=== PATIENT | male | born 1955 | race American Indian/Alaskan Native ===

== ENCOUNTER 2019-04-28 18:53 | Emergency (ER) | payer MEDICARE ==
--- NOTE | 2019-04-28 18:55 | Emergency Department Report ---
ED Neuro Deficit HPI - General Chief Complaint: Neuro Symptoms/Deficit Stated Complaint: STROKE Time Seen by Provider: 04/28/19 18:53 Source: patient, EMS Mode of arrival: Stretcher Limitations: No Limitations - History of Present Illness Initial Comments: Patient is a 63-year-old male who presents emergency with complaints of weakness, difficulty speaking and facial droop. Patient states his symptoms started at 6 PM and resolved just prior to coming to the hospital. Patient brought in by EMS. Patient denies chest pain shortness of breath. Patient denies fever chills. Patient denies headache. Patient denies blurry vision. -: Sudden Location: speech Presenting Symptoms: Present: Facial Droop/Numbness, Unable to Speak Clearly History of same: No Place: home Severity: severe Quality: weak, numb Improves With: time, rest Worsens With: none On Anticoagulants: No Context: sudden onset Associated Symptoms: weakness - Related Data Allergies/Adverse Reactions: Allergies Allergy/AdvReac Type Severity Reaction Status Date / Time No Known Allergies Allergy Unverified 04/28/19 18:55 ED Review of Systems ROS: Stated complaint: STROKE Other details as noted in HPI Constitutional: weakness. denies: chills, fever Eyes: denies: eye pain, eye discharge, vision change ENT: denies: ear pain, throat pain Respiratory: denies: cough, shortness of breath, wheezing Cardiovascular: denies: chest pain, palpitations Endocrine: no symptoms reported Gastrointestinal: denies: abdominal pain, nausea, diarrhea Genitourinary: denies: urgency, dysuria Musculoskeletal: denies: back pain, joint swelling, arthralgia Skin: denies: rash, lesions Neurological: weakness. denies: headache, paresthesias Psychiatric: denies: anxiety, depression Hematological/Lymphatic: denies: easy bleeding, easy bruising ED Past Medical Hx - Past Medical History Previous Medical History?: Yes Hx Hypertension: No Hx HIV: Yes - Surgical History Past Surgical History?: No - Family History Family history: no significant - Social History Smoking Status: Former Smoker Substance Use Type: None ED Neuro Physical Exam - General Limitations: No Limitations General appearance: alert, in no apparent distress Suspected Stroke: Yes - Head Head exam: Present: atraumatic, normocephalic - Eye Eye exam: Present: normal appearance - ENT ENT exam: Present: mucous membranes moist - Neck Neck exam: Present: normal inspection - Respiratory Respiratory exam: Present: normal lung sounds bilaterally. Absent: respiratory distress - Cardiovascular Cardiovascular Exam: Present: regular rate, normal rhythm. Absent: systolic murmur, diastolic murmur, rubs, gallop - GI/Abdominal GI/Abdominal exam: Present: soft, normal bowel sounds - Rectal Rectal exam: Present: deferred - Extremities Exam Extremities exam: Present: normal inspection - Back Exam Back exam: Present: normal inspection - Neurological Exam Neurological exam: Present: alert, oriented X3 - NIHSS Assessment Interval: Baseline 1a. Level of Consciousness: alert/keenly responsive 1b. LOC Questions: answers both correctly 1c. LOC Commands: performs tasks correctly 2. Best Gaze: normal 3. Visual: no visual loss 4. Facial Palsy: minor paralysis 5b. Motor Arm Right: no drift 5a. Motor Arm Left: no drift 6a. Motor Leg Left: no drift 6b. Motor Leg Right: no drift 7. Limb Ataxia: absent 8. Sensory: normal 9. Best Language: no aphasia 10. Dysarthria: normal 11. Extinction/Inattention: no abnormality Total Score: 1 Stroke Severity: Minor Stroke - Psychiatric Psychiatric exam: Present: normal affect, normal mood - Skin Skin exam: Present: warm, dry, intact, normal color. Absent: rash ED Course Vital Signs 04/28/19 04/28/19 04/28/19 19:13 19:15 19:31 Pulse Rate 77 78 85 Respiratory 16 20 13 Rate Blood Pressure 183/99 195/120 O2 Sat by Pulse 99 98 98 Oximetry 04/28/19 04/28/19 04/28/19 19:45 20:00 20:15 Pulse Rate 80 81 94 H Respiratory 11 L 21 14 Rate Blood Pressure 190/113 179/95 179/95 O2 Sat by Pulse 98 99 99 Oximetry 04/28/19 04/28/19 04/28/19 20:30 20:45 21:00 Pulse Rate 93 H 92 H 91 H Respiratory 15 19 21 Rate Blood Pressure 174/96 174/96 151/88 O2 Sat by Pulse 98 98 99 Oximetry 04/28/19 04/28/19 21:15 21:30 Pulse Rate 93 H 90 Respiratory 13 19 Rate Blood Pressure 174/96 170/105 O2 Sat by Pulse 99 99 Oximetry - Reevaluation(s) Reevaluation #1: Radiologist called with report and patient has had basal ganglia bleed 04/28/19 19:05 Reevaluation #2: Patient's blood pressure initially elevated. Patient was given hydralazine 20 mg and Keppra. 04/28/19 19:44 Reevaluation #3: Blood pressure still elevated and patient will be given Lopressor 5 mg IV. 04/28/19 20:44 - Consultations Consultation #1: I discussed the case with neurologist. Neurology wants the patient admitted for stroke workup if CT head negative. 04/28/19 19:[address] findings with neurologist and neurologist recommends keeping the blood pressure below 140/90. 04/28/19 19:50 Consultation #2: [facility] paged 04/28/19 20:07 Discussed case with neurosurgery and the neuro casting machine operator automatic. Dr. Jimenez has accepted the patient be [facility] to [facility]. 04/28/19 20:25 - Lab Data Result diagrams: 04/28/19 19:23 04/28/19 19:23 Lab Results 04/28/19 04/28/19 04/28/19 Range/Units 19:23 19:23 19:23 WBC 3.0 L (4.5-11.0) K/mm3 RBC 3.59 L (3.65-5.03) M/mm3 Hgb 10.8 L (11.8-15.2) gm/dl Hct 32.5 L (35.5-45.6) % MCV 90 (84-94) fl MCH 30 (28-32) pg MCHC 33 (32-34) % RDW 13.9 (13.2-15.2) % Plt Count 109 L (140-440) K/mm3 Lymph % (Auto) 47.2 H (13.4-35.0) % [place] % (Auto) 13.5 H (0.0-7.3) % Eos % (Auto) 2.2 (0.0-4.3) % Baso % (Auto) 0.4 (0.0-1.8) % Lymph # 1.4 (1.2-5.4) K/mm3 [place] # 0.4 (0.0-0.8) K/mm3 Eos # 0.1 (0.0-0.4) K/mm3 Baso # 0.0 (0.0-0.1) K/mm3 Seg Neutrophils % 36.7 L (40.0-70.0) % Seg Neutrophils # 1.1 L (1.8-7.7) K/mm3 PT 14.2 (12.2-14.9) Sec. INR 1.13 (0.87-1.13) APTT 30.0 (24.2-36.6) Sec. Thrombin Time (15.1-19.6) Sec. Sodium 135 L (137-145) mmol/L Potassium 3.9 (3.6-5.0) mmol/L Chloride 101.7 (98-107) mmol/L Carbon Dioxide 27 (22-30) mmol/L Anion Gap 10 mmol/L BUN 22 H (9-20) mg/dL Creatinine 1.7 H (0.8-1.5) mg/dL Estimated GFR 50 ml/min BUN/Creatinine Ratio 13 % Glucose 97 (75-100) mg/dL POC Glucose (70-105) Calcium 8.4 (8.4-10.2) mg/dL Troponin T < 0.010 (0.00-0.029) ng/mL 04/28/19 04/28/19 Range/Units 19:23 19:25 WBC (4.5-11.0) K/mm3 RBC (3.65-5.03) M/mm3 Hgb (11.8-15.2) gm/dl Hct (35.5-45.6) % MCV (84-94) fl MCH (28-32) pg MCHC (32-34) % RDW (13.2-15.2) % Plt Count (140-440) K/mm3 Lymph % (Auto) (13.4-35.0) % [place] % (Auto) (0.0-7.3) % Eos % (Auto) (0.0-4.3) % Baso % (Auto) (0.0-1.8) % Lymph # (1.2-5.4) K/mm3 [place] # (0.0-0.8) K/mm3 Eos # (0.0-0.4) K/mm3 Baso # (0.0-0.1) K/mm3 Seg Neutrophils % (40.0-70.0) % Seg Neutrophils # (1.8-7.7) K/mm3 PT (12.2-14.9) Sec. INR (0.87-1.13) APTT (24.2-36.6) Sec. Thrombin Time 18.0 (15.1-19.6) Sec. Sodium (137-145) mmol/L Potassium (3.6-5.0) mmol/L Chloride (98-107) mmol/L Carbon Dioxide (22-30) mmol/L Anion Gap mmol/L BUN (9-20) mg/dL Creatinine (0.8-1.5) mg/dL Estimated GFR ml/min BUN/Creatinine Ratio % Glucose (75-100) mg/dL POC Glucose 90 (70-105) Calcium (8.4-10.2) mg/dL Troponin T (0.00-0.029) ng/mL - EKG Data -: EKG Interpreted by [place] EKG shows normal: sinus rhythm, intervals, QRS complexes, ST-T waves Rate: normal Interpretation: LVH, other (axis deviation.) - Radiology Data Radiology results: report reviewed CT head/brain wo con INDICATION / CLINICAL INFORMATION: 63 years Male; poss stroke. TECHNIQUE: Routine CT head without contrast. All CT scans at this location are performed using CT dose reduction for ALARA by means of automated exposure control. COMPARISON: None. FINDINGS: BRAIN / INTRACRANIAL CONTENTS: There is a small focus of hemorrhage in the left lentiform nucleus, most likely related to a small lacunar infarct. This area measures 12 mm in maximum dimension. 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 No acute hemorrhage, mass effect, midline shift, hydrocephalus, or acute, large territorial infarct. There are mild to moderate areas of decreased attenuation in the white matter of the cerebral hemispheres. These are nonspecific findings and may be related to microangiopathy (hypertension, diabetes, atherosclerosis), given the patient's age. It might be difficult to evaluate for small areas of ischemia without diffusion imaging by MRI. CRANIOCERVICAL JUNCTION: No significant abnormality. ORBITS: No significant abnormality of visualized orbits. SINUSES / MASTOIDS: Mild mucosal thickening seen in the mastoids. ADDITIONAL FINDINGS: Atherosclerotic disease is seen in the anterior circulation. Chronic sialadenitis suggested in the right parotid gland - multiple small calcifications seen. IMPRESSION: 1. Small focus of hemorrhage in the left lentiform nucleus, as described above. - Medical Decision Making Patient is a 63-year-old mellitus emergency with complaints of facial droop and facial numbness as well as global weakness. Patient had a code stroke initiated upon arrival. Patient initial CT scan shows a intracranial hemorrhage. Patient also found to have elevated blood pressure and given blood pressure medications to control his blood pressure. Patient transferred to [facility]. Patient accepted by the neuro intensive [facility]. Patient's labs unremarkable. - Differential Diagnosis CVA. ich. Weakness. Patient - Core Measures AMI Core Measures Followed: Yes Critical Care Time: Yes Critical care attestation.: If time is entered above; I have spent that time in minutes in the direct care of this critically ill patient, excluding procedure time. Critical Care Time: 45 minutes ED Disposition Clinical Impression: Weakness, Facial droop, Slurred speech Hypertension Qualifiers: Hypertension type: unspecified Qualified Code(s): I10 - Essential (primary) hypertension ICH (intracerebral hemorrhage) Qualifiers: Intracerebral hemorrhage etiology: nontraumatic Cerebral hemorrhage location: unspecified cerebral location Laterality: left Qualified Code(s): I61.9 - Nontraumatic intracerebral hemorrhage, unspecified Disposition: DC/TX-70 ANOTHER TYPE HLTHCARE Is pt being admited?: No Does the pt Need Aspirin: No Condition: Critical Time of Disposition: 20:25
--- NOTE | 2019-04-28 19:24 | Emergency Department Report ---
ED Neuro Deficit HPI - General Chief Complaint: Neuro Symptoms/Deficit Stated Complaint: STROKE Time Seen by Provider: 04/28/19 18:53 Source: patient, EMS Mode of arrival: Stretcher Limitations: No Limitations - History of Present Illness Initial Comments: [employer] TeleNeurology Consult [facility] The patient was informed the neurology consult would happen via TeleHealth by way of interactive audio and visual telecommunications and consented to re ceiving care in this manner for acute stroke protocol. DATE: April 28, 2019 Impression: The patient has some right-sided weakness and numbness with no history of any vascular risk factors is hypertensive with L BG ICH Thankfully symptoms have pretty much resolved. He will need admission for stroke workup and inpatient neurology consultation/neurosurgical consultation Not a tpa candidate due to: Resolution of symptoms ICH Symptoms (not) consistent with LVO therefore no role for ALIA Differential Diagnosis: hypertensive ICH Comments: Last known normal 18:10 Door time 18:53 [employer] contacted:18:57 [employer] at bedside: 19:01 NIHSS assessment time: 19:09 Recommendations: -L BG ICH mick hypertensive BP goal less then 140/90 -admit for stroke workup inpatient neurlogy consultation --reverse any coagulopathy -neurosurgical consultation although no role for intervention at this point Inpatient neurology consultation Inpatient stroke evaluation as per Neurology/ Internal Medicine Discussed with ED MD Please call with questions CC right-sided numbness and weakness slurred speech History of Present Illness Patient is a very pleasant 63-year-old gentleman who says is only health issue is HIV for which she is on anti-retroviral therapy. He denies any other health issues. He does not take any blood thinners. At about 18:10 he began to feel some numbness to his right side of his body and then he actually was trying to get himself up and could not with some weakness. He also noticed some slurred speech. No headache or chest pain but he did feel little sweaty and diaphoret ic. Symptoms are greatly improved and he feels pretty much back to baseline. Diagnostic: CT head without contrast some hyperdensity in the left basal ganglia c/w ICH Exam: 1a- LOC: Keenly responsive - =0 1b- LOC questions: Answers both questions correctly - 0 1c- LOC commands- Performs both tasks correctly- 0 2- Gaze: Normal; no gaze paresis or gaze deviation - 0 3- Visual Garber: normal, no Visual field deficit - 0 4- Facial movements: no facial palsy - 0 5- Upper limb motor - no drift -0 6- Lower limb motor - no drift - 0 7- Limb Coordination: absent ataxia - 0 8- Sensory : no sensory loss - 0 9- Language - No aphasia - 0 10- Speech - No dysarthria -0 11- Neglect / Extinction - none found -0 NIHSS score =0 Medical Decision Making: - Extensive number of diagnosis or management options are considered above. - Extensive amount of complex data reviewed. - High risk of complication and/or morbidity or mortality are associated with differential diagnostic considerations above. - There may be Uncertain outcome and increased probability of prolonged functional impairment or high probability of severe prolonged functional impairment associated with some of these differential diagnosis. Medical Data Reviewed: 1.Data reviewed include clinical labs, radiology, Medical Tests; 2.Tests results discussed w/performing or interpreting physician; 3.Obtaining/reviewing old medical records; 4.Obtaining case history from another source; 5.Independent review of image, tracing or specimen. Patient was informed the Neurology Consult would happen via telehealth (remote video) and consented to receiving care in this manner. - Related Data Allergies/Adverse Reactions: Allergies Allergy/AdvReac Type Severity Reaction Status Date / Time No Known Allergies Allergy Unverified 04/28/19 18:55 ED Review of Systems ROS: Stated complaint: STROKE Other details as noted in HPI ED Past Medical Hx - Social History Smoking Status: Never Smoker ED Neuro Physical Exam - General Limitations: No Limitations Suspected Stroke: Yes - NIHSS Assessment Interval: Baseline 1a. Level of Consciousness: alert/keenly responsive 1b. LOC Questions: answers both correctly 1c. LOC Commands: performs tasks correctly 2. Best Gaze: normal 3. Visual: no visual loss 4. Facial Palsy: normal symmetrical movement 5b. Motor Arm Right: no drift 5a. Motor Arm Left: no drift 6a. Motor Leg Left: no drift 6b. Motor Leg Right: no drift 7. Limb Ataxia: absent 8. Sensory: normal 9. Best Language: no aphasia 10. Dysarthria: normal 11. Extinction/Inattention: no abnormality Total Score: 0 Stroke Severity: No Stroke Symptoms ED Course Vital Signs 04/28/19 04/28/19 19:13 19:15 Pulse Rate 77 78 Respiratory 16 20 Rate Blood Pressure 183/99 O2 Sat by Pulse 99 98 Oximetry - Lab Data Result diagrams: 04/28/19 19:23 Lab Results 04/28/19 04/28/19 Range/Units 19:23 19:25 WBC 3.0 L (4.5-11.0) K/mm3 RBC 3.59 L (3.65-5.03) M/mm3 Hgb 10.8 L (11.8-15.2) gm/dl Hct 32.5 L (35.5-45.6) % MCV 90 (84-94) fl MCH 30 (28-32) pg MCHC 33 (32-34) % RDW 13.9 (13.2-15.2) % Plt Count 109 L (140-440) K/mm3 Lymph % (Auto) 47.2 H (13.4-35.0) % [place] % (Auto) 13.5 H (0.0-7.3) % Eos % (Auto) 2.2 (0.0-4.3) % Baso % (Auto) 0.4 (0.0-1.8) % Lymph # 1.4 (1.2-5.4) K/mm3 [place] # 0.4 (0.0-0.8) K/mm3 Eos # 0.1 (0.0-0.4) K/mm3 Baso # 0.0 (0.0-0.1) K/mm3 Seg Neutrophils % 36.7 L (40.0-70.0) % Seg Neutrophils # 1.1 L (1.8-7.7) K/mm3 POC Glucose 90 (70-105) Critical care attestation.: If time is entered above; I have spent that time in minutes in the direct care of this critically ill patient, excluding procedure time. ED Disposition Clinical Impression: Weakness, Facial droop, Slurred speech Disposition: OP ADMIT IP TO THIS HOSP Is pt being admited?: Yes Condition: Critical Referrals: [facility], MD [Primary Care Provider] - 3-5 Days
[2019-04-28 19:36] LABS: Basophils % (Auto) 0.4 % (0.0-1.8); Eosinophils # (Auto) 0.1 K/mm3 (0.0-0.4); Eosinophils % (Auto) 2.2 % (0.0-4.3); Hematocrit 32.5 % (35.5-45.6); Hemoglobin 10.8 gm/dl (11.8-15.2); Lymphocytes # (Auto) 1.4 K/mm3 (1.2-5.4); Lymphocytes % (Auto) 47.2 % (13.4-35.0); Mean Corpuscular HGB Conc 33 % (32-34); Mean Corpuscular Volume 90 fl (84-94); Monocytes # (Auto) 0.4 K/mm3 (0.0-0.8); Monocytes % (Auto) 13.5 % (0.0-7.3); Platelet Count 109 K/mm3 (140-440); Red Blood Count 3.59 M/mm3 (3.65-5.03); Red Cell Distribution Width 13.9 % (13.2-15.2)
--- NOTE | 2019-04-28 19:39 | Cat Scan Report ---
CT head/brain wo con INDICATION / CLINICAL INFORMATION: 63 years Male; poss stroke. TECHNIQUE: Routine CT head without contrast. All CT scans at this location are performed using CT dos e reduction for ALARA by means of automated exposure control. COMPARISON: None. FINDINGS: BRAIN / INTRACRANIAL CONTENTS: There is a small focus of hemorrhage in the left lentiform nucleus, mo st likely related to a small lacunar infarct. This area measures 12 mm in maximum dimension. Old jacqueline us striatal infarct suggested on the left as well-there is associated atrophic dilatation of the fron maxx horn of the left lateral ventricle. 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 No acute hemorrhage, mass effect, midline shift, hy drocephalus, or acute, large territorial infarct. There are mild to moderate areas of decreased attenuation in the white matter of the cerebral hemisph eres. These are nonspecific findings and may be related to microangiopathy (hypertension, diabetes, a therosclerosis), given the patient's age. It might be difficult to evaluate for small areas of ischem ia without diffusion imaging by MRI. CRANIOCERVICAL JUNCTION: No significant abnormality. ORBITS: No significant abnormality of visualized orbits. SINUSES / MASTOIDS: Mild mucosal thickening seen in the mastoids. ADDITIONAL FINDINGS: Atherosclerotic disease is seen in the anterior circulation. Chronic sialadenitis suggested in the right parotid gland - multiple small calcifications seen. IMPRESSION: 1. Small focus of hemorrhage in the left lentiform nucleus, as described above. This exam was performed as part of a code stroke protocol. The exam was completed at 6:30 PM on 2018 . The exam was reviewed at 6:[address] Croft was notified at 6:33 PM. Signer Name: Rommel Morin MD, III Signed: 04/28/2019 7:35 PM Workstation Name: [id number]
[2019-04-28] MEDS ORDERED: APRESOLINE IV ONE (19:43)
[2019-04-28] MEDS ORDERED: KEPPRA 1,000 MG/NS 0.75% 100ML 1,000 MG/100 ML BAG IV ONE (19:43)
[2019-04-28 19:44] LABS: INR 1.13 (0.87-1.13)
[2019-04-28 20:02] LABS: BUN/Creatinine Ratio 13; Blood Urea Nitrogen 22 mg/dL (9-20); Calcium 8.4 mg/dL (8.4-10.2); Hemolysis Index 18
[2019-04-28] MEDS ORDERED: LOPRESSOR IV ONE (20:44)
[2019-04-28 21:36] VITALS: BP 170/105
== END 2019-04-28 21:59 | disposition other institution (70) ==
LOC: ED 18:53
DX: R29.810 Facial weakness (principal); R47.81 Slurred speech; R20.0 Anesthesia of skin
CPT/HCPCS: 36415; 70450; 80048; 82962; 84484; 85025; 85610; 85670; 85730; 93005; 93010; 96374; 96375; 99285; J0360; J1953